=== PATIENT | female | born 1945 | race Hispanic/Latino ===

== ENCOUNTER 2024-11-14 14:54 | Emergency (ER) | payer MEDICARE ==
[~2024-11-14] VITALS: Ht 154.9 cm; Wt 56.7 kg
[~2024-11-14 14:54] MED LIST: AMLODIPINE BESYL5 MG PO; ARMOUR THYROID90 MG PO; CARVEDILOL12.5 MG PO; CLONAZEPAM0.5 MG PO; CYCLOBENZAPRINE10 MG PO; FENOFIBRATE160 MG PO; PREDNISONE10 MG PO; SYMBICORT 80-10.2 GM INH; TERBUTALINE SU2.5 MG PO
[2024-11-14 15:30] LABS: BASOPHILS # (AUTO) 0.1 (0.0-0.1); BASOPHILS % 0.8 % (0.0-1.0); EOSINOPHILS # (AUTO) 0.2 (0.0-0.4); EOSINOPHILS % 2.4 % (0.0-6.0); HEMATOCRIT 35.9 % (34.2-44.1); HEMOGLOBIN 11.7 g/dL (12.0-16.0); LYMPHOCYTES # (AUTO) 1.9 (1.0-3.2); LYMPHOCYTES % 29.4 % (18.0-39.1); MEAN CORPUSCULAR HEMOGLOBIN 29.6 pg (28-32); MEAN CORPUSCULAR HGB CONC 32.6 g/dL (31-35); MEAN CORPUSCULAR VOLUME 90.9 fL (81-99); MONOCYTES # (AUTO) 0.6 (0.2-0.8); MONOCYTES % 8.8 % (4.4-11.3); NEUTROPHILS # (AUTO) 3.7 (2.1-6.9); NEUTROPHILS % 58.3 % (38.7-80.0); PLATELET COUNT 303 x10e3/uL (140-360); RED BLOOD COUNT 3.95 x10e6/uL (3.6-5.1); WHITE BLOOD COUNT 6.36 x10e3/uL (4.8-10.8)
[2024-11-14 15:49] LABS: BILIRUBIN,URINE NEGATIVE (NEGATIVE); CLARITY,URINE SL CLOUDY (CLEAR); COLOR,URINE YELLOW (YELLOW); GLUCOSE, URINE NEGATIVE (NEGATIVE); KETONES,URINE NEGATIVE (NEGATIVE); LEUKOCYTE ESTERASE ,URINE NEGATIVE (NEGATIVE); NITRITE,URINE NEGATIVE (NEGATIVE); PH,URINE 6.5 (5 - 7); PROTEIN,URINE DIPSTICK NEGATIVE (NEGATIVE); URINE UROBILINOGEN 0.2 mg/dL (0.2 - 1)
[2024-11-14 15:50] LABS: ALBUMIN 4.1 g/dL (3.5-5.0); ALBUMIN/GLOBULIN RATIO 1.6 (0.8-2.0); ANION GAP 13.5 mmol/L (8-16); BILIRUBIN,TOTAL 0.4 mg/dL (0.2-1.2); CALCIUM 8.7 mg/dL (8.4-10.2); CREATININE, SERUM 0.83 mg/dL (0.57-1.11); POTASSIUM 3.5 mmol/L (3.5-5.1); TOTAL PROTEIN 6.6 g/dL (6.5-8.1)
[2024-11-14 15:59] LABS: BACTERIA,URINE RARE /HPF
[2024-11-14] MEDS: MECLIZINE HCL 12.5 MG TAB PO STA (17:12)
[2024-11-14] MEDS ORDERED: MECLIZINE HCL12.5 MG PO (17:57)
[2024-11-14 18:30] VITALS: PULSE 62; RESP 17; TEMP 98.3; O2SAT 97
== END 2024-11-14 18:30 | disposition home or self-care (01) ==
LOC: ER 15:01
DX: R42 Dizziness and giddiness (principal); R51.9 Headache, unspecified; R11.0 Nausea; I10 Essential (primary) hypertension; E11.9 Type 2 diabetes mellitus without complications; E03.9 Hypothyroidism, unspecified; M32.9 Systemic lupus erythematosus, unspecified
CPT/HCPCS: 36415; 70450; 71045; 80053; 81001; 84484; 85025; 93005; 99284; J8597